=== PATIENT | male | born 1985 ===

== ENCOUNTER → 2025-09-23 10:12 | Outpatient (REF) | payer BC, SELFPAY | LOC: RAD 10:12 | PROVIDERS: ATTENDING PHYSICIAN Student in an Organized Health Care Education/Training Program; FAMILY PHYSICIAN Nurse Practitioner Adult Health | DX: R10.A2 Flank pain, left side (principal); N50.3 Cyst of epididymis | CPT/HCPCS: 76770; 76870; 93976 ==